=== PATIENT | male | born 1975 | race Two or more races ===

== ENCOUNTER 2018-12-09 20:45 | Inpatient (IN) | payer OTHER ==
[2018-12-09 23:59] VITALS: BMI 19.5
--- NOTE | 2018-12-10 01:56 | PN ---
BHS COWS - Scale Resting Pulse: 1= [place] 81-100 Sweatin= Chills/Flushing Restless Observation: 1= Difficult to Sit Still Pupil Size: 0= Normal to Room Light Bone or Joint Aches: 4=Acute Joint/Muscle Pain Runny Nose/ Eye Tearin= Nasal Congestion GI Upset > 30mins: 1= Stomach Cramp Tremor Observation of Outstretched Hands: 1= Tremor [place], Not Seen Yawning Observation: 1= 1-2x During Session Anxiety or Irritability: 2=Irritable/Anxious Goose Flesh Skin: 3=Piloerection COWS Score: 16 BHS Progress Note (SOAP) Subjective: here for detox. this is client first admission. referred by his retirement for heroin dependence. client reports sniffing 5 bags daily since age 12. with reported clean time inbetween. last use 1 day. now with withdrawal sx's. previous ivdu. denies sob, c.p. si/hi/avh. he also uses cocaine pmhx- denies psych- ptsd, anxiety, bipolar meds- trazodone, gabapentin, risperdal Objective: 12/10/18 01:54 Vital Signs Temperature 96.2 F L 12/10/18 00:34 Pulse Rate 82 12/10/18 00:34 Respiratory Rate 18 12/10/18 00:34 Blood Pressure 99/56 L 12/10/18 00:34 O2 Sat by Pulse Oximetry (%) jacky 0 utox randy, opi, oxy a/o x3 irritable ncat perrla, eomi cv rrr lungs ctab ABD- SOFT, NT, INCREASE BS X4 skin- FLUSHED INTACT EXTREMITIES- + TREMORS, 12/10/18 02:09 12/10/18 08:42 Assessment: 12/10/18 01:56 f11.23 f14.20 Plan: admit to detox mtd taper
[2018-12-10] MEDS ORDERED: METHOCARBAMOL 500 MG TABLET PO PRN (01:57)
[2018-12-10] MEDS ORDERED: NICOTINE POLACRILEX 2 MG GUM BUC PRN (01:57)
[2018-12-10] MEDS ORDERED: cloNIDine HCL 0.1 MG TABLET PO PRN (01:57)
[2018-12-10] MEDS ORDERED: MAGNESIUM CITRATE 300 ML BOTTLE PO PRN (01:57)
[2018-12-10] MEDS ORDERED: ACETAMINOPHEN 325 MG TABLET (FP) PO PRN ×2 (01:57)
[2018-12-10] MEDS ORDERED: IBUPROFEN 400 MG TABLET (FP) PO PRN (01:57)
[2018-12-10] MEDS ORDERED: DICYCLOMINE HCL 10 MG CAPSULE PO PRN (01:57)
[2018-12-10] MEDS ORDERED: METHADONE HCL 10 MG TABLET (FOR DETOX USE ONLY) PO ONE ×2 (01:57→10:00)
[2018-12-10] MEDS ORDERED: MAGNESIUM HYDROX 2400MG/30ML ORAL SUSPENSION 30 ML CUP PO PRN (01:57)
[2018-12-10] MEDS ORDERED: BISMUTH SUBSALICYLATE 524 MG/30 ML UD PO PRN (01:57)
[2018-12-10] MEDS ORDERED: guaiFENesin 200 MG/10 ML 10 ML UNIT-DOSE CUPS PO PRN (01:57)
[2018-12-10] MEDS ORDERED: MAG HYDROX/AL HYDROX/SIMETH 30 ML UNIT-DOSE CUP PO PRN (01:57)
[2018-12-10] MEDS ORDERED: MELATONIN 5 MG TABLETS PO PRN (01:57)
[2018-12-10] MEDS ORDERED: NALOXONE HCL 0.4 MG/ML VIAL IM PRN (01:57)
[2018-12-10] MEDS ORDERED: ONDANSETRON *ODT* 4 MG TABLET SL PRN ×2 (01:57→12:25)
[2018-12-10] MEDS ORDERED: MENTHOL/PHENOL 1 EACH UD MM PRN (01:57)
[2018-12-10] MEDS: PRENATAL VITAMINS W/ FOLIC ACID TABLET (FP) PO SCH (09:51)
--- NOTE | 2018-12-10 10:10 | HP ---
COWS - Scale Resting Pulse: 1= [place] 81-100 Sweatin= Chills/Flushing Restless Observation: 1= Difficult to Sit Still Pupil Size: 0= Normal to Room Light Bone or Joint Aches: 4=Acute Joint/Muscle Pain Runny Nose/ Eye Tearin= Nasal Congestion GI Upset > 30mins: 1= Stomach Cramp Tremor Observation: 1= Tremor [place], Not Seen Yawning Observation: 1= 1-2x During Session Anxiety or Irritability: 2=Irritable/Anxious Goose Flesh Skin: 3=Piloerection COWS Score: 16 CIWA Score - Admission Criteria OASAS Guidelines: Admission for Medically Managed Detox: Requires at least one of the followin. CIWA greater than 12 2. Seizures within the past 24 hours 3. Delirium tremens within the past 24 hours 4. Hallucinations within the past 24 hours 5. Acute intervention needed for co occurring medical disorder 6. Acute intervention needed for co occurring psychiatric disorder 7. Severe withdrawal that cannot be handled at a lower level of care (continued vomiting, continued diarrhea, abnormal vital signs) requiring intravenous medication and/or fluids 8. Admitting History and Physical - Admission Chief Complaint: i need help to stop using heroin,cocaine and k2 History of Present Illness: this 43 years old male with heroin,cocaine,k2 dependence, seeking detox, withdrawal symptom, fist time to this facility,stated on parole, denied seizure denied black out last detox [facility],05/28 history of bipolar disorder,ptsd multiple admissions in detox plan for rehab no significant period of sobriety smoke 4 cigarette/day History Source: Patient Limitations to Obtaining History: No Limitations - Past Medical History Psych: Yes: Anxiety, Bipolar, Other (ptsd) - Past Surgical History Past Surgical History: Yes: None - Smoking History Smoking history: Current every day smoker Have you smoked in the past 12 months: No Aproximately how many cigarettes per day: 4 - Alcohol/Substance Use Hx Alcohol Use: No History of Substance Use: reports: Cocaine, Heroin, Marijuana - Social History Usual Living Arrangement: Yes: Other ([facility]) Occupation: unemployed History of Recent Travel: No Other Social History: unemployed,living in the [facility],on parole Admission ROS BHS - HPI Chief Complaint: i am here to stop using heroin,alcohol and k2 Allergies/Adverse Reactions: Allergies Allergy/AdvReac Type Severity Reaction Status Date / Time No Known Allergies Allergy Verified 12/09/18 23:30 History of Present Illness: please see in PMH note - Ebola screening Have you traveled outside of the country in the last 21 days: No (N) Have you had contact with anyone from an Ebola affected area: No Do you have a fever: No - Review of Systems Constitutional: Chills, Loss of Appetite, Changes in sleep, Weakness, Unintentional Wgt. Loss EENT: reports: Tearing, Nose Congestion Respiratory: reports: No Symptoms reported Cardiac: reports: No Symptoms Reported GI: reports: Nausea, Poor Appetite, Vomiting : reports: No Symptoms Reported Musculoskeletal: reports: Back Pain, Joint Pain, Muscle Pain Integumentary: reports: Dryness Endocrine: reports: No Symptoms Reported Hematology: reports: No Symptoms Reported Psychiatric: reports: No Sypmtoms Reported, Judgement Intact, Mood/Affect Appropiate, Orientated x3 Other Systems: Reviewed and Negative Patient History - Patient Medical History Hx Anemia: No Hx Asthma: No Hx Chronic Obstructive Pulmonary Disease (COPD): No Hx Cancer: No Hx Cardiac Disorders: No Hx Hypertension: No Hx Hypercholesterolemia: No Hx Pacemaker: No HX Cerebrovascular Accident: No Hx Seizures: No Hx Diabetes: No Hx Gastrointestinal Disorders: No Hx Liver Disease: No Hx Genitourinary Disorders: No Hx Sexually Transmitted Disorders: No Hx Renal Disease (ESRD): No Hx Thyroid Disease: No Hx Human Immunodeficiency Virus (HIV): No (11/28 negative) Hx Hepatitis C: No Hx Depression: No Hx Suicide Attempt: No Hx Bipolar Disorder: Yes Hx Schizophrenia: Yes Other Medical History: no suicidal,no homicidal - Patient Surgical History Past Surgical History: No Hx Neurologic Surgery: No Hx Cataract Extraction: No Hx Cardiac Surgery: No Hx Lung Surgery: No Hx Breast Surgery: No Hx Breast Biopsy: No Hx Abdominal Surgery: No Hx Appendectomy: No Hx Cholecystectomy: No Hx Genitourinary Surgery: No Hx Section: No Hx Orthopedic Surgery: No Anesthesia Reaction: No - PPD History Previous Implant?: No (refused , stated 'i did it 2 weeks ago") Documented Results: Negative w/o proof PPD to be Administered?: No - Reproductive History Patient : No - Smoking Cessation Smoking history: Current every day smoker Have you smoked in the past 12 months: Yes Aproximately how many cigarettes per day: 0 Hx Chewing Tobacco Use: No Initiated information on smoking cessation: Yes 'Breaking Loose' booklet given: 12/10/18 - Substance & Tx. History Hx Alcohol Use: No Hx Substance Use: Yes Substance Use Type: Cocaine, Heroin Hx Substance Use Treatment: Yes ([facility] 05/28) - Substances abused Heroin Other (specify): SNIFF Frequency: Daily Amount used: 6 BAGS Age of first use: 12 Date of last use: 12/09/18 Cocaine Substance route: Smoking Frequency: Daily Amount used: 2-3 BAGS Age of first use: 13 Date of last use: 12/09/18 Admission Physical Exam [facility] - Vital Signs Vital Signs: Vital Signs - 24 hr 12/09/18 12/10/18 12/10/18 23:32 00:34 02:31 Temperature 96.2 F L 96.2 F L 97.7 F Pulse Rate 82 82 76 Respiratory 18 18 18 Rate Blood Pressure 99/56 L 99/56 L 108/63 12/10/18 12/10/18 06:00 09:42 Temperature 98.1 F 97.7 F Pulse Rate 68 75 Respiratory 18 18 Rate Blood Pressure 129/69 106/50 L - Physical General Appearance: Yes: Moderate Distress, Tremorous, Irritable, Sweating, Anxious HEENTM: Yes: Normal ENT Inspection, EMELY, Pharynx Normal Respiratory: Yes: Lungs Clear, Normal Breath Sounds, No Respiratory Distress Neck: Yes: Within Normal Limits, Supple, Trachea in good position Breast: Yes: Within Normal Limits Cardiology: Yes: Within Normal Limits, Regular Rhythm, Regular Rate, S1, S2 Abdominal: Yes: Within Normal Limits, Normal Bowel Sounds, Non Tender, Flat, Soft Genitourinary: Yes: Within Normal Limits Back: Yes: Muscle Spasm Musculoskeletal: Yes: Back pain, Muscle Pain Extremities: Yes: Within Normal Limits, Normal Range of Motion, Tremors Neurological: Yes: sample processor II-XII NML intact, Alert, Motor Strength 5/5 Integumentary: Yes: Dry Lymphatic: Yes: Within Normal Limits - Diagnostic (1) Opioid dependence with withdrawal Current Visit: Yes Status: Acute (2) Cocaine dependence Current Visit: Yes Status: Acute (3) Bipolar disorder Current Visit: Yes Status: Acute (4) PTSD (post-traumatic stress disorder) Current Visit: Yes Status: Acute (5) Weight loss Current Visit: Yes Status: Acute Cleared for Admission [facility] - Detox or Rehab [facility] Level of Care: Medically Managed Detox Regimen/Protocol: Methadone Urine Drug Screen - Test Device Lot number: [id number] Expiration date: 07/10/20 - Control Is test valid?: Yes - Results Drug screen NEGATIVE: No Urine drug screen results: KRISTEN-Cocaine, MOP-Opiates, OXY-Oxycodone Inpatient Rehab Admission - Rehab Decision to Admit Inpatient rehab admission?: No
--- NOTE | 2018-12-10 10:14 | EKG ---
Test Reason : Blood Pressure : / mmHG Vent. Rate : 070 BPM Atrial Rate : 070 BPM P-R Int : 184 ms QRS Dur : 092 ms QT Int : 414 ms P-R-T Axes : 038 074 035 degrees QTc Int : 447 ms NORMAL SINUS RHYTHM NORMAL ECG NO PREVIOUS ECGS AVAILABLE Confirmed by Alen Ayoub MD ([id number]) on 12/10/2018 10:13:56 AM Referred By: Sonny Miranda Confirmed By:Alen Ayoub MD
[2018-12-10 11:57] LABS: HEMATOCRIT 39.7 % (35.4-49); HEMOGLOBIN 13.2 GM/dL (11.7-16.9); MCH 29.3 pg (25.7-33.7); MCHC 33.2 g/dl (32.0-35.9); MEAN CELL VOLUME 88.2 fl (80-96); MEAN PLT VOLUME 8.7 fl (7.5-11.1); PLATELET COUNT 267 K/MM3 (134-434); WHITE BLOOD COUNT 5.3 K/mm3 (4.0-10.0)
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
[2018-12-10] MEDS: GABAPENTIN 300 MG CAPSULE (FP) PO SCH ×2 (12:45→22:28)
[2018-12-10] MEDS: risperiDONE 2 MG TABLET PO SCH (12:46)
[2018-12-10 12:57] LABS: ALBUMIN 3.4 g/dl (3.4-5.0); BILIRUBIN,TOTAL 0.3 mg/dL (0.2-1); BLOOD UREA NITROGEN 11.9 mg/dL (7-18); CALCIUM 8.6 mg/dL (8.5-10.1); CREATININE 0.7 mg/dL (0.55-1.3); POTASSIUM 4.2 mmol/L (3.5-5.1)
[2018-12-10] MEDS ORDERED: traZODone HCL 100 MG TABLET (FP) ONE (19:42)
[2018-12-10] MEDS ORDERED: GABAPENTIN 100 MG CAPSULE (FP) ONE (19:42)
[2018-12-10] MEDS: THIAMINE HCL 100 MG TABLET (FP) PO SCH (22:26)
[2018-12-10] MEDS: traZODone HCL 100 MG TABLET (FP) PO SCH (22:27)
[2018-12-10] MEDS ORDERED: clonazePAM 0.5 MG TABLET PO ONE (22:49)
--- NOTE | 2018-12-10 22:49 | PN ---
BHS Progress Note Note: INFORMED BY RN CLIENT IS COMPLAINING OR RESTLESSNESS, APPEARS VERY ANXIOUS. ASKING FOR SOMETHING TO HELP HIM RELAX REFUSING VISTARIL IT DOES NOT WORK. KLONOPIN 0.5 MG X 1 DOSE GIVEN. CONT TO MONITOR CLOSELY
[2018-12-10] MEDS ORDERED: clonazePAM 0.5 MG TABLET ONE (22:59)
[2018-12-10] MEDS: hydrOXYzine PAMOATE 25 MG CAPSULE (FP) PO PRN (23:00)
[2018-12-11] MEDS ORDERED: METHADONE HCL 10 MG TABLET (FOR DETOX USE ONLY) ONE (08:45)
[2018-12-11] MEDS ORDERED: METHADONE HCL 5 MG TABLET (FOR DETOX USE ONLY) ONE (08:46)
[2018-12-11] MEDS: risperiDONE 2 MG TABLET PO SCH (09:16)
[2018-12-11] MEDS: GABAPENTIN 300 MG CAPSULE (FP) PO SCH ×2 (09:16→21:42)
[2018-12-11] MEDS: PRENATAL VITAMINS W/ FOLIC ACID TABLET (FP) PO SCH (09:16)
[2018-12-11] MEDS ORDERED: METHADONE (DETOX) 20 MG, METHADONE (DETOX) 5 MG PO ONE (10:00)
--- NOTE | 2018-12-11 11:59 | PN ---
S COWS - Scale Resting Pulse: 0= [place] 80 or Below Sweatin= No chills or Flushing Restless Observation: 1= Difficult to Sit Still Pupil Size: 1= Pupils >than Normal Bone or Joint Aches: 1= Mild Discomfort Runny Nose/ Eye Tearin= Runny Nose/Eyes GI Upset > 30mins: 2= Nausea/Diarrhea Tremor Observation of Outstretched Hands: 1= Tremor [place], Not Seen Yawning Observation: 1= 1-2x During Session Anxiety or Irritability: 2=Irritable/Anxious Goose Flesh Skin: 0=Smooth Skin COWS Score: 11 [facility] Progress Note (SOAP) Subjective: alert,irritable,anxious,interrupted sleep,tremor Objective: 12/11/18 11:58 Vital Signs Temperature 97.3 F L 12/11/18 09:19 Pulse Rate 67 12/11/18 09:19 Respiratory Rate 18 12/11/18 09:19 Blood Pressure 113/62 12/11/18 09:19 O2 Sat by Pulse Oximetry (%) Laboratory Last Values WBC 5.3 K/mm3 (4.0-10.0) 12/10/18 08:45 RBC 4.50 M/mm3 (4.00-5.60) 12/10/18 08:45 Hgb 13.2 GM/dL (11.7-16.9) 12/10/18 08:45 Hct 39.7 % (35.4-49) 12/10/18 08:45 MCV 88.2 fl (80-96) 12/10/18 08:45 MCH 29.3 pg (25.7-33.7) 12/10/18 08:45 MCHC 33.2 g/dl (32.0-35.9) 12/10/18 08:45 RDW 15.0 % (11.9-15.9) 12/10/18 08:45 Plt Count 267 K/MM3 (134-434) 12/10/18 08:45 MPV 8.7 fl (7.5-11.1) 12/10/18 08:45 Sodium 140 mmol/L (136-145) 12/10/18 08:45 Potassium 4.2 mmol/L (3.5-5.1) 12/10/18 08:45 Chloride 104 mmol/L (98-107) 12/10/18 08:45 Carbon Dioxide 28 mmol/L (21-32) 12/10/18 08:45 Anion Gap 8 MMOL/L (8-16) 12/10/18 08:45 BUN 11.9 mg/dL (7-18) 12/10/18 08:45 Creatinine 0.7 mg/dL (0.55-1.3) 12/10/18 08:45 Est GFR (CKD-EPI)AfAm 132.09 12/10/18 08:45 Est GFR (CKD-EPI)NonAf 113.97 12/10/18 08:45 Random Glucose 104 mg/dL (74-106) 12/10/18 08:45 Calcium 8.6 mg/dL (8.5-10.1) 12/10/18 08:45 Total Bilirubin 0.3 mg/dL (0.2-1) 12/10/18 08:45 AST 61 U/L (15-37) H 12/10/18 08:45 ALT 174 U/L (13-61) H 12/10/18 08:45 Alkaline Phosphatase 72 U/L (45-117) 12/10/18 08:45 Total Protein 7.0 g/dl (6.4-8.2) 12/10/18 08:45 Albumin 3.4 g/dl (3.4-5.0) 12/10/18 08:45 RPR Titer Nonreactive (NONREACTIVE) 12/10/18 08:45 Assessment: 12/11/18 11:58 withdrawal symptom hiv test pending Plan: continue detox methadone regimen,repeat ast,alt,inr in am
[2018-12-11] MEDS: hydrOXYzine PAMOATE 25 MG CAPSULE (FP) PO PRN (13:40)
[2018-12-11] MEDS: THIAMINE HCL 100 MG TABLET (FP) PO SCH (21:42)
[2018-12-11] MEDS: traZODone HCL 100 MG TABLET (FP) PO SCH (21:42)
[2018-12-12] MEDS: risperiDONE 2 MG TABLET PO SCH (09:52)
[2018-12-12] MEDS: GABAPENTIN 300 MG CAPSULE (FP) PO SCH ×2 (09:52→21:22)
[2018-12-12] MEDS: PRENATAL VITAMINS W/ FOLIC ACID TABLET (FP) PO SCH (09:52)
[2018-12-12] MEDS: hydrOXYzine PAMOATE 25 MG CAPSULE (FP) PO PRN ×2 (09:54→16:31)
[2018-12-12] MEDS ORDERED: METHADONE HCL 10 MG TABLET (FOR DETOX USE ONLY) PO ONE (10:00)
[2018-12-12] MEDS ORDERED: ONDANSETRON *ODT* 4 MG TABLET SL PRN (14:16)
--- NOTE | 2018-12-12 14:25 | PN ---
BHS COWS - Scale Resting Pulse: 0= [place] 80 or Below Sweatin= Chills/Flushing Restless Observation: 1= Difficult to Sit Still Pupil Size: 0= Normal to Room Light Bone or Joint Aches: 1= Mild Discomfort Runny Nose/ Eye Tearin= Runny Nose/Eyes GI Upset > 30mins: 2= Nausea/Diarrhea Tremor Observation of Outstretched Hands: 1= Tremor [place], Not Seen Yawning Observation: 1= 1-2x During Session Anxiety or Irritability: 2=Irritable/Anxious Goose Flesh Skin: 0=Smooth Skin COWS Score: 11 S Progress Note (SOAP) Subjective: c/o of nausea, anxious, interrupted sleep, chills, sweats Objective: 12/12/18 14:20 Vital Signs Temperature 96.8 F L 12/12/18 09:43 Pulse Rate 77 12/12/18 09:43 Respiratory Rate 16 12/12/18 09:43 Blood Pressure 116/55 L 12/12/18 09:43 O2 Sat by Pulse Oximetry (%) Laboratory Last Values WBC 5.3 K/mm3 (4.0-10.0) 12/10/18 08:45 RBC 4.50 M/mm3 (4.00-5.60) 12/10/18 08:45 Hgb 13.2 GM/dL (11.7-16.9) 12/10/18 08:45 Hct 39.7 % (35.4-49) 12/10/18 08:45 MCV 88.2 fl (80-96) 12/10/18 08:45 MCH 29.3 pg (25.7-33.7) 12/10/18 08:45 MCHC 33.2 g/dl (32.0-35.9) 12/10/18 08:45 RDW 15.0 % (11.9-15.9) 12/10/18 08:45 Plt Count 267 K/MM3 (134-434) 12/10/18 08:45 MPV 8.7 fl (7.5-11.1) 12/10/18 08:45 Sodium 140 mmol/L (136-145) 12/10/18 08:45 Potassium 4.2 mmol/L (3.5-5.1) 12/10/18 08:45 Chloride 104 mmol/L (98-107) 12/10/18 08:45 Carbon Dioxide 28 mmol/L (21-32) 12/10/18 08:45 Anion Gap 8 MMOL/L (8-16) 12/10/18 08:45 BUN 11.9 mg/dL (7-18) 12/10/18 08:45 Creatinine 0.7 mg/dL (0.55-1.3) 12/10/18 08:45 Est GFR (CKD-EPI)AfAm 132.09 12/10/18 08:45 Est GFR (CKD-EPI)NonAf 113.97 12/10/18 08:45 Random Glucose 104 mg/dL (74-106) 12/10/18 08:45 Calcium 8.6 mg/dL (8.5-10.1) 12/10/18 08:45 Total Bilirubin 0.3 mg/dL (0.2-1) 12/10/18 08:45 AST 61 U/L (15-37) H 12/10/18 08:45 ALT 174 U/L (13-61) H 12/10/18 08:45 Alkaline Phosphatase 72 U/L (45-117) 12/10/18 08:45 Total Protein 7.0 g/dl (6.4-8.2) 12/10/18 08:45 Albumin 3.4 g/dl (3.4-5.0) 12/10/18 08:45 RPR Titer Nonreactive (NONREACTIVE) 12/10/18 08:45 HIV 1&2 Ag/Ab, 4th Gen Non reactive (Non Reactive) 12/11/18 08:00 elevated LFTS, reports hx of HCV and treated in the past, repeat CMP d/c acetaminophen 12/12/18 14:24 Assessment: 12/12/18 14:23 Aox3 no acute distress no adventitious breath sounds full ROM no gait abnormality withdrawal sx Plan: increase PO fluids zofran prn continue detox continue to monitor
[2018-12-12] MEDS: P-EPHED 60MG/TRIPROLIDI 2.5MG TABLET PO PRN (14:47)
[2018-12-12] MEDS: THIAMINE HCL 100 MG TABLET (FP) PO SCH (21:22)
[2018-12-12] MEDS: traZODone HCL 100 MG TABLET (FP) PO SCH (21:22)
[2018-12-13] MEDS ORDERED: METHADONE HCL 5 MG TABLET (FOR DETOX USE ONLY) ONE (08:59)
[2018-12-13] MEDS ORDERED: METHADONE HCL 10 MG TABLET (FOR DETOX USE ONLY) ONE (08:59)
[2018-12-13] MEDS: risperiDONE 2 MG TABLET PO SCH (09:19)
[2018-12-13] MEDS: PRENATAL VITAMINS W/ FOLIC ACID TABLET (FP) PO SCH (09:19)
[2018-12-13] MEDS: GABAPENTIN 300 MG CAPSULE (FP) PO SCH ×2 (09:19→21:58)
[2018-12-13] MEDS ORDERED: METHADONE (DETOX) 10 MG, METHADONE (DETOX) 5 MG PO ONE (10:00)
[2018-12-13] MEDS: hydrOXYzine PAMOATE 25 MG CAPSULE (FP) PO PRN (10:43)
[2018-12-13] MEDS: P-EPHED 60MG/TRIPROLIDI 2.5MG TABLET PO PRN (10:43)
[2018-12-13] MEDS ORDERED: MELATONIN 5 MG TABLETS PO PRN (12:03)
--- NOTE | 2018-12-13 12:17 | PN ---
BHS COWS - Scale Resting Pulse: 0= [place] 80 or Below Sweatin= Chills/Flushing Restless Observation: 1= Difficult to Sit Still Pupil Size: 0= Normal to Room Light Bone or Joint Aches: 1= Mild Discomfort Runny Nose/ Eye Tearin= Nasal Congestion GI Upset > 30mins: 0= None Tremor Observation of Outstretched Hands: 1= Tremor [place], Not Seen Yawning Observation: 0= None Anxiety or Irritability: 2=Irritable/Anxious Goose Flesh Skin: 0=Smooth Skin COWS Score: 7 [facility] Progress Note (SOAP) Subjective: sweats agitation irritable insomnia Objective: 12/13/18 12:16 Vital Signs Temperature 98.1 F 12/13/18 10:17 Pulse Rate 77 12/13/18 10:17 Respiratory Rate 16 12/13/18 10:17 Blood Pressure 105/55 L 12/13/18 10:17 O2 Sat by Pulse Oximetry (%) Laboratory Tests 12/10/18 12/10/18 12/10/18 08:45 08:45 08:45 WBC 5.3 RBC 4.50 Hgb 13.2 Hct 39.7 MCV 88.2 MCH 29.3 MCHC 33.2 RDW 15.0 Plt Count 267 MPV 8.7 Sodium 140 Potassium 4.2 Chloride 104 Carbon Dioxide 28 Anion Gap 8 BUN 11.9 Creatinine 0.7 Est GFR (CKD-EPI)AfAm 132.09 Est GFR (CKD-EPI)NonAf 113.97 Random Glucose 104 Calcium 8.6 Total Bilirubin 0.3 AST 61 H ALT 174 H Alkaline Phosphatase 72 Total Protein 7.0 Albumin 3.4 RPR Titer Nonreactive HIV 1&2 Ag/Ab, 4th Gen 12/11/18 08:00 WBC RBC Hgb Hct MCV MCH MCHC RDW Plt Count MPV Sodium Potassium Chloride Carbon Dioxide Anion Gap BUN Creatinine Est GFR (CKD-EPI)AfAm Est GFR (CKD-EPI)NonAf Random Glucose Calcium Total Bilirubin AST ALT Alkaline Phosphatase Total Protein Albumin RPR Titer HIV 1&2 Ag/Ab, 4th Gen Non reactive labs noted aaox3 ambulating no acute distress Assessment: 12/13/18 12:16 withdrawals sx Plan: continue detox valium 10mg q4hrs x 3 days melatonin 10mg qhs prn
[2018-12-13] MEDS: diazePAM 5 MG TABLET PO PRN ×2 (13:48→21:58)
[2018-12-13] MEDS: THIAMINE HCL 100 MG TABLET (FP) PO SCH (21:58)
[2018-12-13] MEDS: traZODone HCL 100 MG TABLET (FP) PO SCH (21:58)
[2018-12-14] MEDS ORDERED: METHADONE HCL 10 MG TABLET (FOR DETOX USE ONLY) PO ONE (10:00)
[2018-12-14] MEDS: GABAPENTIN 300 MG CAPSULE (FP) PO SCH ×2 (11:12→22:51)
[2018-12-14] MEDS: risperiDONE 2 MG TABLET PO SCH (11:12)
[2018-12-14] MEDS: PRENATAL VITAMINS W/ FOLIC ACID TABLET (FP) PO SCH (11:12)
[2018-12-14] MEDS: diazePAM 5 MG TABLET PO PRN (11:15)
--- NOTE | 2018-12-14 13:24 | PN ---
BHS COWS - Scale Resting Pulse: 0= [place] 80 or Below Sweatin= Chills/Flushing Restless Observation: 1= Difficult to Sit Still Pupil Size: 0= Normal to Room Light Bone or Joint Aches: 0= None Runny Nose/ Eye Tearin= None GI Upset > 30mins: 0= None Tremor Observation of Outstretched Hands: 0= None Yawning Observation: 1= 1-2x During Session Anxiety or Irritability: 1=Feels Anxious/Irritable Goose Flesh Skin: 0=Smooth Skin COWS Score: 4 [facility] Progress Note (SOAP) Subjective: c/o mild anxiety, sweats, and irritability. Objective: 12/14/18 13:22 Vital Signs 12/14/18 06:00 Temperature 97.9 F Pulse Rate 56 L Respiratory 18 Rate Blood Pressure 112/60 Lab Results WBC 5.3 K/mm3 (4.0-10.0) 12/10/18 08:45 RBC 4.50 M/mm3 (4.00-5.60) 12/10/18 08:45 Hgb 13.2 GM/dL (11.7-16.9) 12/10/18 08:45 Hct 39.7 % (35.4-49) 12/10/18 08:45 MCV 88.2 fl (80-96) 12/10/18 08:45 MCHC 33.2 g/dl (32.0-35.9) 12/10/18 08:45 RDW 15.0 % (11.9-15.9) 12/10/18 08:45 Plt Count 267 K/MM3 (134-434) 12/10/18 08:45 Sodium 140 mmol/L (136-145) 12/10/18 08:45 Potassium 4.2 mmol/L (3.5-5.1) 12/10/18 08:45 Chloride 104 mmol/L (98-107) 12/10/18 08:45 Carbon Dioxide 28 mmol/L (21-32) 12/10/18 08:45 Anion Gap 8 MMOL/L (8-16) 12/10/18 08:45 BUN 11.9 mg/dL (7-18) 12/10/18 08:45 Creatinine 0.7 mg/dL (0.55-1.3) 12/10/18 08:45 Random Glucose 104 mg/dL (74-106) 12/10/18 08:45 Calcium 8.6 mg/dL (8.5-10.1) 12/10/18 08:45 Labs noted. Assessment: 12/14/18 13:22 AOX3, in no acute respiratory distress. Full ROM, ambulating in the unit. mild withdrawal symptoms. For discharge tomorrow. 12/14/18 13:23 Plan: continue detox. discontinue valium prn.
[2018-12-14] MEDS: THIAMINE HCL 100 MG TABLET (FP) PO SCH (22:51)
[2018-12-14] MEDS: traZODone HCL 100 MG TABLET (FP) PO SCH (22:51)
[2018-12-14] MEDS: hydrOXYzine PAMOATE 25 MG CAPSULE (FP) PO PRN (22:57)
[2018-12-15] MEDS ORDERED: METHADONE HCL 5 MG TABLET (FOR DETOX USE ONLY) PO ONE (06:00)
[2018-12-15 09:23] VITALS: BP 107/50; PULSE 69; TEMP 97.1
--- NOTE | 2018-12-15 14:57 | PN ---
S Progress Note (SOAP) Subjective: no complaint offered Objective: 12/15/18 14:56 A & O x 3 not in acute distress ] Vital Signs Temperature 97.1 F L 12/15/18 09:21 Pulse Rate 69 12/15/18 09:21 Respiratory Rate 18 12/15/18 09:21 Blood Pressure 107/50 L 12/15/18 09:21 O2 Sat by Pulse Oximetry (%) Assessment: 12/15/18 14:57 completed detox Plan: for d/c
--- NOTE | 2018-12-15 15:03 | DS ---
[facility] Detox Discharge Summary Admission Date: 12/10/18 Discharge Date: 12/15/18 - History Additional Comments: patient for d/c verbalized feeling great states he will continue care at his detention by attending meetings - Physical Exam Results Vital Signs: Vital Signs Temperature 97.1 F L 12/15/18 09:21 Pulse Rate 69 12/15/18 09:21 Respiratory Rate 18 12/15/18 09:21 Blood Pressure 107/50 L 12/15/18 09:21 O2 Sat by Pulse Oximetry (%) - Treatment Hospital Course: Detox Protocol Followed, Detoxed Safely, Responded well, Discharged Condition Good - Medication Discharge Medications: Ambulatory Orders Gabapentin 300 mg PO BID 12/09/18 Risperidone [Risperdal] 2 mg PO DAILY 12/09/18 traZODone HCL [Trazodone HCl] 100 mg PO HS 12/09/18 - Diagnosis (1) Cannabis dependence Status: Acute (2) Cocaine dependence Status: Acute (3) Opioid dependence with withdrawal Status: Acute (4) Substance-induced anxiety disorder Status: Acute (5) Substance-induced sleep disorder Status: Acute (6) Weight loss Status: Acute (7) Bipolar disorder Status: Chronic (8) Nicotine dependence Status: Chronic (9) PTSD (post-traumatic stress disorder) Status: Chronic - AMA Did Patient Leave Against Medical Advice: No
== END 2018-12-15 09:25 | disposition home or self-care (01) | DRG 773 ==
LOC: YASAS 20:45 → Y6N 12-10 02:03
PROVIDERS: ADMIT Surgery; ATTEND Surgery
PROC: HZ2ZZZZ Detoxification Services for Substance Abuse Treatment (ICD-10-PCS; principal; 2018-12-10)
DX: F11.23 Opioid dependence with withdrawal (principal); F14.20 Cocaine dependence, uncomplicated; F12.20 Cannabis dependence, uncomplicated; F17.210 Nicotine dependence, cigarettes, uncomplicated; F19.280 Other psychoactive substance dependence with psychoactive substance-induced anxiety disorder; F19.282 Other psychoactive substance dependence with psychoactive substance-induced sleep disorder; F31.9 Bipolar disorder, unspecified; F43.10 Post-traumatic stress disorder, unspecified; F20.9 Schizophrenia, unspecified; R94.5 Abnormal results of liver function studies; R63.4 Abnormal weight loss; Z68.1 Body mass index [BMI] 19.9 or less, adult; Z59.0 Homelessness
CPT/HCPCS: 36415; 80053; 85027; 86593; 87389; 93005; 93010; J0735

== ENCOUNTER 2020-08-24 14:04 | Inpatient (IN) | payer OTHER ==
[2020-08-24 15:27] VITALS: BMI 25.4
[2020-08-24] MEDS ORDERED: MAGNESIUM CITRATE 300 ML BOTTLE PO PRN (18:18)
[2020-08-24] MEDS ORDERED: P-EPHED 60MG/TRIPROLIDI 2.5MG TABLET PO PRN (18:18)
[2020-08-24] MEDS ORDERED: IBUPROFEN 400 MG TABLET (FP) PO PRN (18:18)
[2020-08-24] MEDS ORDERED: MAGNESIUM HYDROX 2400MG/30ML ORAL SUSPENSION 30 ML CUP PO PRN (18:18)
[2020-08-24] MEDS ORDERED: ACETAMINOPHEN 325 MG TABLET (FP) PO PRN (18:18)
[2020-08-24] MEDS ORDERED: LOPERAMIDE HCL 2 MG CAPSULE PO PRN (18:18)
[2020-08-24] MEDS ORDERED: guaiFENesin 200 MG/10 ML 10 ML UNIT-DOSE CUPS PO PRN (18:18)
[2020-08-24] MEDS ORDERED: MAG HYDROX/AL HYDROX/SIMETH 30 ML UNIT-DOSE CUP PO PRN (18:18)
[2020-08-24] MEDS ORDERED: TUBERCULIN PPD 5 TU/0.1ML VIAL ID ONE ×2 (19:02→22:03)
[2020-08-24] MEDS: NICOTINE 7 MG/24 HOURS TOPICAL PATCH TD SCH (21:24)
[2020-08-24] MEDS: THIAMINE HCL 100 MG TABLET (FP) PO SCH (21:25)
[2020-08-24] MEDS: hydrOXYzine PAMOATE 25 MG CAPSULE (FP) PO SCH (21:25)
[2020-08-24] MEDS: NICOTINE POLACRILEX 2 MG GUM BC PRN (21:27)
[2020-08-24] MEDS ORDERED: MELATONIN 5 MG TABLETS PO SCH (22:00)
[2020-08-25] MEDS: hydrOXYzine PAMOATE 25 MG CAPSULE (FP) PO SCH ×5 (07:55→21:35)
[2020-08-25 10:07] LABS: HEMATOCRIT 37.9 % (35.4-49); MCH 31.5 pg (25.7-33.7); MCHC 34.2 g/dl (32.0-35.9); MEAN PLT VOLUME 8.6 fl (7.5-11.1); PLATELET COUNT 149 10^3/uL (134-434); RBC 4.12 M/mm3 (4.00-5.60); RDW 14.3 % (11.9-15.9); WHITE BLOOD COUNT 3.9 K/mm3 (4.0-10.0)
[2020-08-25 10:12] LABS: CALCIUM 8.2 mg/dL (8.5-10.1)
[2020-08-25 10:13] LABS: ALBUMIN 2.8 g/dl (3.4-5.0); BLOOD UREA NITROGEN 3.4 mg/dL (7-18)
[2020-08-25 10:16] LABS: CREATININE 0.5 mg/dL (0.55-1.3)
[2020-08-25 10:18] LABS: BILIRUBIN,TOTAL 1.2 mg/dL (0.2-1); TOT PROT 6.3 g/dl (6.4-8.2)
[2020-08-25] MEDS ORDERED: METHADONE HCL 40 MG DISPERSABLE TABLET PO ONE (10:45)
[2020-08-25] MEDS: PRENATAL VITAMINS W/ FOLIC ACID TABLET (FP) PO SCH (10:47)
[2020-08-25] MEDS: NICOTINE 7 MG/24 HOURS TOPICAL PATCH TD SCH (10:47)
[2020-08-25] MEDS: NICOTINE POLACRILEX 2 MG GUM BC PRN (10:48)
[2020-08-25] MEDS: risperiDONE 1 MG TABLET PO SCH (21:35)
[2020-08-25] MEDS: THIAMINE HCL 100 MG TABLET (FP) PO SCH (21:35)
[2020-08-25] MEDS: GABAPENTIN 100 MG CAPSULE PO SCH (21:35)
[2020-08-25] MEDS: traZODone HCL 50 MG TABLET (FP) PO SCH (21:36)
[2020-08-26] MEDS ORDERED: METHADONE HCL 10 MG TABLET PO ONE (06:00)
[2020-08-26] MEDS ORDERED: METHADONE 80 MG, METHADONE 10 MG PO ONE (06:00)
[2020-08-26] MEDS ORDERED: METHADONE HCL 40 MG DISPERSABLE TABLET ONE (06:15)
[2020-08-26] MEDS ORDERED: METHADONE HCL 10 MG TABLET ONE (06:15)
[2020-08-26] MEDS: hydrOXYzine PAMOATE 25 MG CAPSULE (FP) PO SCH ×5 (07:02→21:27)
[2020-08-26] MEDS: PRENATAL VITAMINS W/ FOLIC ACID TABLET (FP) PO SCH (10:12)
[2020-08-26] MEDS: NICOTINE 7 MG/24 HOURS TOPICAL PATCH TD SCH (10:13)
[2020-08-26] MEDS: GABAPENTIN 100 MG CAPSULE PO SCH ×2 (10:13→21:26)
[2020-08-26] MEDS: risperiDONE 1 MG TABLET PO SCH (21:26)
[2020-08-26] MEDS: THIAMINE HCL 100 MG TABLET (FP) PO SCH (21:26)
[2020-08-26] MEDS: traZODone HCL 50 MG TABLET (FP) PO SCH (21:26)
[2020-08-27] MEDS ORDERED: METHADONE HCL 40 MG DISPERSABLE TABLET ONE (04:41)
[2020-08-27] MEDS ORDERED: METHADONE HCL 10 MG TABLET ONE (04:41)
[2020-08-27] MEDS ORDERED: METHADONE HCL 10 MG TABLET PO ONE (06:00)
[2020-08-27] MEDS ORDERED: METHADONE 80 MG, METHADONE 20 MG PO SCH (06:00)
[2020-08-27] MEDS: hydrOXYzine PAMOATE 25 MG CAPSULE (FP) PO SCH ×5 (06:52→21:04)
[2020-08-27] MEDS: NICOTINE 7 MG/24 HOURS TOPICAL PATCH TD SCH (09:59)
[2020-08-27] MEDS: PRENATAL VITAMINS W/ FOLIC ACID TABLET (FP) PO SCH (09:59)
[2020-08-27] MEDS: GABAPENTIN 100 MG CAPSULE PO SCH ×2 (09:59→21:04)
[2020-08-27] MEDS: NICOTINE POLACRILEX 2 MG GUM BC PRN (10:00)
[2020-08-27] MEDS: HYDROCORTISONE 1% TOPICAL CREAM 30 GM TUBE TP SCH ×2 (15:22→21:05)
[2020-08-27] MEDS: traZODone HCL 50 MG TABLET (FP) PO SCH (21:04)
[2020-08-27] MEDS: THIAMINE HCL 100 MG TABLET (FP) PO SCH (21:07)
[2020-08-27] MEDS: risperiDONE 2 MG TABLET PO SCH (21:49)
[2020-08-28] MEDS ORDERED: METHADONE HCL 10 MG TABLET ONE (05:07)
[2020-08-28] MEDS ORDERED: METHADONE HCL 40 MG DISPERSABLE TABLET ONE (05:07)
[2020-08-28] MEDS ORDERED: METHADONE HCL 10 MG TABLET PO SCH (06:00)
[2020-08-28] MEDS: METHADONE 80 MG, METHADONE 30 MG PO SCH (06:32)
[2020-08-28] MEDS: hydrOXYzine PAMOATE 25 MG CAPSULE (FP) PO SCH ×5 (06:32→21:45)
[2020-08-28] MEDS: GABAPENTIN 100 MG CAPSULE PO SCH ×2 (07:15→21:45)
[2020-08-28] MEDS ORDERED: PT OWN MED DRAWER 7, Y5N ONE (08:51)
[2020-08-28] MEDS: PRENATAL VITAMINS W/ FOLIC ACID TABLET (FP) PO SCH (09:38)
[2020-08-28] MEDS: HYDROCORTISONE 1% TOPICAL CREAM 30 GM TUBE TP SCH ×2 (09:39→21:45)
[2020-08-28] MEDS: NICOTINE 7 MG/24 HOURS TOPICAL PATCH TD SCH (09:40)
[2020-08-28] MEDS: NICOTINE POLACRILEX 2 MG GUM BC PRN (09:40)
[2020-08-28] MEDS: traZODone HCL 50 MG TABLET (FP) PO SCH (21:45)
[2020-08-28] MEDS: THIAMINE HCL 100 MG TABLET (FP) PO SCH (21:45)
[2020-08-28] MEDS: risperiDONE 2 MG TABLET PO SCH (21:46)
[2020-08-29] MEDS ORDERED: METHADONE HCL 10 MG TABLET ONE (03:21)
[2020-08-29] MEDS ORDERED: METHADONE HCL 40 MG DISPERSABLE TABLET ONE (03:22)
[2020-08-29] MEDS: METHADONE 80 MG, METHADONE 30 MG PO SCH (06:48)
[2020-08-29] MEDS: hydrOXYzine PAMOATE 25 MG CAPSULE (FP) PO SCH ×5 (06:48→21:27)
[2020-08-29] MEDS: PRENATAL VITAMINS W/ FOLIC ACID TABLET (FP) PO SCH (09:30)
[2020-08-29] MEDS: NICOTINE 7 MG/24 HOURS TOPICAL PATCH TD SCH (09:30)
[2020-08-29] MEDS: GABAPENTIN 100 MG CAPSULE PO SCH ×2 (09:31→21:27)
[2020-08-29] MEDS: HYDROCORTISONE 1% TOPICAL CREAM 30 GM TUBE TP SCH ×2 (09:32→21:28)
[2020-08-29 11:04] LABS: PH,URINE >= 9.0 (5.0-8.0); URINE APPEARANCE CLEAR; URINE BILIRUBIN NEGATIVE (NEGATIVE); URINE COLOR YELLOW; URINE GLUCOSE (UA) NEGATIVE (NEGATIVE); URINE KETONE NEGATIVE (NEGATIVE); URINE LEUK ESTERASE NEGATIVE (NEGATIVE); URINE NITRITE NEGATIVE (NEGATIVE); URINE PROTEIN NEGATIVE (NEGATIVE); URINE UROBILINOGEN 0.2 mg/dL (0.2-1.0)
[2020-08-29] MEDS ORDERED: PT OWN MED DRAWER 7, Y5N ONE (18:57)
[2020-08-29] MEDS: THIAMINE HCL 100 MG TABLET (FP) PO SCH (21:27)
[2020-08-29] MEDS: traZODone HCL 50 MG TABLET (FP) PO SCH (21:27)
[2020-08-29] MEDS: risperiDONE 2 MG TABLET PO SCH (21:27)
[2020-08-30] MEDS ORDERED: METHADONE HCL 10 MG TABLET ONE (03:43)
[2020-08-30] MEDS ORDERED: METHADONE HCL 40 MG DISPERSABLE TABLET ONE (03:44)
[2020-08-30] MEDS: METHADONE 80 MG, METHADONE 30 MG PO SCH (07:04)
[2020-08-30] MEDS: hydrOXYzine PAMOATE 25 MG CAPSULE (FP) PO SCH ×5 (07:04→21:30)
[2020-08-30] MEDS: GABAPENTIN 100 MG CAPSULE PO SCH (09:24)
[2020-08-30] MEDS: PRENATAL VITAMINS W/ FOLIC ACID TABLET (FP) PO SCH (09:24)
[2020-08-30] MEDS: HYDROCORTISONE 1% TOPICAL CREAM 30 GM TUBE TP SCH ×2 (09:24→22:16)
[2020-08-30] MEDS: NICOTINE 7 MG/24 HOURS TOPICAL PATCH TD SCH (09:25)
[2020-08-30] MEDS: THIAMINE HCL 100 MG TABLET (FP) PO SCH (21:31)
[2020-08-30] MEDS: risperiDONE 2 MG TABLET PO SCH (21:31)
[2020-08-30] MEDS: GABAPENTIN 300 MG CAPSULE PO SCH (21:31)
[2020-08-30] MEDS: traZODone HCL 100 MG TABLET (FP) PO SCH (21:34)
[2020-08-31] MEDS ORDERED: METHADONE HCL 10 MG TABLET ONE (05:23)
[2020-08-31] MEDS ORDERED: METHADONE HCL 40 MG DISPERSABLE TABLET ONE (05:23)
[2020-08-31] MEDS: hydrOXYzine PAMOATE 25 MG CAPSULE (FP) PO SCH ×2 (06:26→10:05)
[2020-08-31] MEDS: GABAPENTIN 300 MG CAPSULE PO SCH ×3 (06:26→22:11)
[2020-08-31] MEDS: METHADONE 80 MG, METHADONE 30 MG PO SCH (06:27)
[2020-08-31] MEDS: HYDROCORTISONE 1% TOPICAL CREAM 30 GM TUBE TP SCH ×2 (10:04→22:11)
[2020-08-31] MEDS: NICOTINE 7 MG/24 HOURS TOPICAL PATCH TD SCH (10:05)
[2020-08-31] MEDS: PRENATAL VITAMINS W/ FOLIC ACID TABLET (FP) PO SCH (10:05)
[2020-08-31] MEDS: risperiDONE 1 MG TABLET PO SCH (10:05)
[2020-08-31] MEDS ORDERED: PT OWN MED DRAWER 7, Y5N ONE (20:07)
[2020-08-31] MEDS: THIAMINE HCL 100 MG TABLET (FP) PO SCH (22:11)
[2020-08-31] MEDS: traZODone HCL 100 MG TABLET (FP) PO SCH (22:11)
[2020-08-31] MEDS: risperiDONE 2 MG TABLET PO SCH (22:12)
[2020-09-01] MEDS ORDERED: METHADONE HCL 40 MG DISPERSABLE TABLET ONE (04:15)
[2020-09-01] MEDS ORDERED: METHADONE HCL 10 MG TABLET ONE (04:15)
[2020-09-01] MEDS: GABAPENTIN 300 MG CAPSULE PO SCH ×2 (06:18→14:45)
[2020-09-01] MEDS: METHADONE 80 MG, METHADONE 30 MG PO SCH (06:19)
[2020-09-01] MEDS: HYDROCORTISONE 1% TOPICAL CREAM 30 GM TUBE TP SCH (09:39)
[2020-09-01] MEDS: hydrOXYzine PAMOATE 25 MG CAPSULE (FP) PO PRN ×2 (09:39→21:17)
[2020-09-01] MEDS: PRENATAL VITAMINS W/ FOLIC ACID TABLET (FP) PO SCH (09:39)
[2020-09-01] MEDS: NICOTINE 7 MG/24 HOURS TOPICAL PATCH TD SCH (09:39)
[2020-09-01] MEDS: risperiDONE 1 MG TABLET PO SCH (09:39)
[2020-09-01] MEDS ORDERED: PT OWN MED DRAWER 7, Y5N ONE (21:16)
[2020-09-01] MEDS: GABAPENTIN 100 MG CAPSULE PO SCH (21:16)
[2020-09-01] MEDS: THIAMINE HCL 100 MG TABLET (FP) PO SCH (21:16)
[2020-09-01] MEDS: risperiDONE 2 MG TABLET PO SCH (21:18)
[2020-09-02] MEDS ORDERED: METHADONE HCL 40 MG DISPERSABLE TABLET ONE (03:14)
[2020-09-02] MEDS ORDERED: METHADONE HCL 10 MG TABLET ONE (03:14)
[2020-09-02] MEDS: METHADONE 80 MG, METHADONE 30 MG PO SCH (06:34)
[2020-09-02] MEDS: GABAPENTIN 100 MG CAPSULE PO SCH ×3 (06:34→21:38)
[2020-09-02] MEDS: risperiDONE 1 MG TABLET PO SCH (09:40)
[2020-09-02] MEDS: NICOTINE 7 MG/24 HOURS TOPICAL PATCH TD SCH (09:40)
[2020-09-02] MEDS: PRENATAL VITAMINS W/ FOLIC ACID TABLET (FP) PO SCH (09:40)
[2020-09-02] MEDS: NICOTINE POLACRILEX 2 MG GUM BC PRN ×2 (09:42→21:40)
[2020-09-02] MEDS: CLOTRIMAZOLE 1% CREAM 15 GM TUBE TP SCH ×2 (14:50→21:41)
[2020-09-02] MEDS ORDERED: PT OWN MED DRAWER 7, Y5N ONE (18:59)
[2020-09-02] MEDS: SUVOREXANT 10 MG TABLET PO PRN (21:37)
[2020-09-02] MEDS: THIAMINE HCL 100 MG TABLET (FP) PO SCH (21:38)
[2020-09-02] MEDS: risperiDONE 2 MG TABLET PO SCH (21:38)
[2020-09-02] MEDS: hydrOXYzine PAMOATE 25 MG CAPSULE (FP) PO PRN (21:39)
[2020-09-03] MEDS ORDERED: METHADONE HCL 40 MG DISPERSABLE TABLET ONE (05:00)
[2020-09-03] MEDS ORDERED: METHADONE HCL 10 MG TABLET ONE (05:00)
[2020-09-03] MEDS: METHADONE 80 MG, METHADONE 30 MG PO SCH (06:40)
[2020-09-03] MEDS: GABAPENTIN 100 MG CAPSULE PO SCH ×3 (06:40→21:11)
[2020-09-03] MEDS: NICOTINE 7 MG/24 HOURS TOPICAL PATCH TD SCH (09:52)
[2020-09-03] MEDS: PRENATAL VITAMINS W/ FOLIC ACID TABLET (FP) PO SCH (09:52)
[2020-09-03] MEDS: CLOTRIMAZOLE 1% CREAM 15 GM TUBE TP SCH ×2 (09:53→21:11)
[2020-09-03] MEDS: risperiDONE 1 MG TABLET PO SCH (09:53)
[2020-09-03] MEDS: hydrOXYzine PAMOATE 25 MG CAPSULE (FP) PO PRN (09:54)
[2020-09-03] MEDS: NICOTINE POLACRILEX 2 MG GUM BC PRN (09:54)
[2020-09-03] MEDS ORDERED: PT OWN MED DRAWER 7, Y5N ONE (18:13)
[2020-09-03] MEDS: THIAMINE HCL 100 MG TABLET (FP) PO SCH (21:11)
[2020-09-03] MEDS: risperiDONE 2 MG TABLET PO SCH (21:11)
[2020-09-04] MEDS ORDERED: METHADONE HCL 40 MG DISPERSABLE TABLET ONE (04:04)
[2020-09-04] MEDS ORDERED: METHADONE HCL 10 MG TABLET ONE (04:04)
[2020-09-04] MEDS: GABAPENTIN 100 MG CAPSULE PO SCH ×3 (06:13→21:16)
[2020-09-04] MEDS: METHADONE 80 MG, METHADONE 30 MG PO SCH (06:13)
[2020-09-04] MEDS: PRENATAL VITAMINS W/ FOLIC ACID TABLET (FP) PO SCH (09:52)
[2020-09-04] MEDS: NICOTINE 7 MG/24 HOURS TOPICAL PATCH TD SCH (09:52)
[2020-09-04] MEDS: CLOTRIMAZOLE 1% CREAM 15 GM TUBE TP SCH ×2 (09:52→21:16)
[2020-09-04] MEDS: risperiDONE 1 MG TABLET PO SCH (09:52)
[2020-09-04] MEDS ORDERED: PT OWN MED DRAWER 7, Y5N ONE (19:36)
[2020-09-04] MEDS: SUVOREXANT 10 MG TABLET PO PRN (21:16)
[2020-09-04] MEDS: risperiDONE 2 MG TABLET PO SCH (21:16)
[2020-09-04] MEDS: THIAMINE HCL 100 MG TABLET (FP) PO SCH (21:16)
[2020-09-04] MEDS: hydrOXYzine PAMOATE 25 MG CAPSULE (FP) PO PRN (21:16)
[2020-09-05] MEDS ORDERED: METHADONE HCL 10 MG TABLET ONE (02:07)
[2020-09-05] MEDS ORDERED: METHADONE HCL 40 MG DISPERSABLE TABLET ONE (02:07)
[2020-09-05] MEDS: GABAPENTIN 100 MG CAPSULE PO SCH ×3 (06:12→21:23)
[2020-09-05] MEDS: METHADONE 80 MG, METHADONE 30 MG PO SCH (06:13)
[2020-09-05] MEDS: PRENATAL VITAMINS W/ FOLIC ACID TABLET (FP) PO SCH (09:58)
[2020-09-05] MEDS: hydrOXYzine PAMOATE 25 MG CAPSULE (FP) PO PRN ×2 (09:58→19:16)
[2020-09-05] MEDS: risperiDONE 1 MG TABLET PO SCH (09:58)
[2020-09-05] MEDS: NICOTINE POLACRILEX 2 MG GUM BC PRN (09:58)
[2020-09-05] MEDS: NICOTINE 7 MG/24 HOURS TOPICAL PATCH TD SCH (09:58)
[2020-09-05] MEDS: BACITRACIN 0.9 GM PACKET TP SCH (09:59)
[2020-09-05] MEDS: CLOTRIMAZOLE 1% CREAM 15 GM TUBE TP SCH ×2 (09:59→21:23)
[2020-09-05] MEDS: SUVOREXANT 10 MG TABLET PO PRN (21:23)
[2020-09-05] MEDS: THIAMINE HCL 100 MG TABLET (FP) PO SCH (21:23)
[2020-09-05] MEDS: risperiDONE 2 MG TABLET PO SCH (21:23)
[2020-09-05] MEDS ORDERED: SUVOREXANT 10 MG TABLET PO PRN (22:00)
[2020-09-06] MEDS: hydrOXYzine PAMOATE 25 MG CAPSULE (FP) PO PRN (02:11)
[2020-09-06] MEDS ORDERED: METHADONE HCL 10 MG TABLET ONE (05:00)
[2020-09-06] MEDS ORDERED: METHADONE HCL 40 MG DISPERSABLE TABLET ONE (05:00)
[2020-09-06] MEDS: METHADONE 80 MG, METHADONE 30 MG PO SCH (06:46)
[2020-09-06] MEDS: GABAPENTIN 100 MG CAPSULE PO SCH ×3 (06:46→21:31)
[2020-09-06] MEDS: PRENATAL VITAMINS W/ FOLIC ACID TABLET (FP) PO SCH (09:33)
[2020-09-06] MEDS: BACITRACIN 0.9 GM PACKET TP SCH (09:33)
[2020-09-06] MEDS: risperiDONE 1 MG TABLET PO SCH (09:33)
[2020-09-06] MEDS: NICOTINE 7 MG/24 HOURS TOPICAL PATCH TD SCH (09:34)
[2020-09-06] MEDS: CLOTRIMAZOLE 1% CREAM 15 GM TUBE TP SCH ×2 (09:34→21:31)
[2020-09-06] MEDS: NICOTINE POLACRILEX 2 MG GUM BC PRN ×2 (15:44→21:36)
[2020-09-06] MEDS ORDERED: PT OWN MED DRAWER 7, Y5N ONE (19:27)
[2020-09-06] MEDS: THIAMINE HCL 100 MG TABLET (FP) PO SCH (21:31)
[2020-09-06] MEDS: risperiDONE 2 MG TABLET PO SCH (21:31)
[2020-09-07] MEDS ORDERED: METHADONE HCL 10 MG TABLET ONE (05:19)
[2020-09-07] MEDS ORDERED: METHADONE HCL 40 MG DISPERSABLE TABLET ONE (05:19)
[2020-09-07] MEDS: METHADONE 80 MG, METHADONE 30 MG PO SCH (05:55)
[2020-09-07] MEDS: GABAPENTIN 100 MG CAPSULE PO SCH (05:55)
[2020-09-07 07:11] VITALS: BP 129/75; PULSE 67; TEMP 97.6
[2020-09-07] MEDS: PRENATAL VITAMINS W/ FOLIC ACID TABLET (FP) PO SCH (09:12)
[2020-09-07] MEDS: NICOTINE 7 MG/24 HOURS TOPICAL PATCH TD SCH (09:12)
[2020-09-07] MEDS: risperiDONE 1 MG TABLET PO SCH (09:13)
[2020-09-07] MEDS: CLOTRIMAZOLE 1% CREAM 15 GM TUBE TP SCH (09:13)
[2020-09-07] MEDS: BACITRACIN 0.9 GM PACKET TP SCH (09:13)
== END 2020-09-07 09:40 | disposition home or self-care (01) | DRG 772 ==
LOC: YASAS 14:04 → Y5N 18:40
PROVIDERS: ADMIT Allergy & Immunology; ATTEND Allergy & Immunology
PROC: HZ42ZZZ Group Counseling for Substance Abuse Treatment, Cognitive-Behavioral (ICD-10-PCS; principal; 2020-08-24)
DX: F10.20 Alcohol dependence, uncomplicated (principal); F11.20 Opioid dependence, uncomplicated; F14.20 Cocaine dependence, uncomplicated; F12.20 Cannabis dependence, uncomplicated; F17.210 Nicotine dependence, cigarettes, uncomplicated; F31.9 Bipolar disorder, unspecified; F19.280 Other psychoactive substance dependence with psychoactive substance-induced anxiety disorder; F19.282 Other psychoactive substance dependence with psychoactive substance-induced sleep disorder; F43.10 Post-traumatic stress disorder, unspecified; B35.6 Tinea cruris; R32 Unspecified urinary incontinence; R63.4 Abnormal weight loss; Z68.25 Body mass index [BMI] 25.0-25.9, adult; Z91.5 Personal history of self-harm; Z56.0 Unemployment, unspecified; Z59.0 Homelessness
CPT/HCPCS: 36415; 80053; 81003; 85027; 86780; 93005; 93010; J2794

== ENCOUNTER 2020-11-25 16:38 | Inpatient (IN) | payer OTHER ==
[2020-11-25 21:27] VITALS: BMI 19.5
[2020-11-25] MEDS ORDERED: BISMUTH SUBSALICYLATE 524 MG/30 ML PO PRN (23:26)
[2020-11-25] MEDS ORDERED: ACETAMINOPHEN 325 MG TABLET (FP) PO PRN ×2 (23:26)
[2020-11-25] MEDS ORDERED: MAGNESIUM CITRATE 300 ML BOTTLE PO PRN (23:26)
[2020-11-25] MEDS ORDERED: MAG HYDROX/AL HYDROX/SIMETH 30 ML UNIT-DOSE CUP PO PRN (23:26)
[2020-11-25] MEDS ORDERED: ONDANSETRON *ODT* 4 MG TABLET SL PRN (23:26)
[2020-11-25] MEDS ORDERED: MAGNESIUM HYDROX 2400MG/30ML ORAL SUSPENSION 30 ML CUP PO PRN (23:26)
[2020-11-25] MEDS ORDERED: MENTHOL/PHENOL 1 EACH UD MM PRN (23:26)
[2020-11-25] MEDS ORDERED: IBUPROFEN 400 MG TABLET (FP) PO PRN (23:26)
[2020-11-25] MEDS ORDERED: NICOTINE POLACRILEX 2 MG GUM BUC PRN (23:26)
[2020-11-25] MEDS ORDERED: methaDONE HCL 10 MG TABLET (FOR DETOX USE ONLY) PO ONE (23:50)
[2020-11-26] MEDS ORDERED: methaDONE HCL 10 MG TABLET (FOR DETOX USE ONLY) ONE (01:47)
[2020-11-26] MEDS ORDERED: METHOCARBAMOL 500 MG TABLET ONE (01:52)
[2020-11-26] MEDS: METHOCARBAMOL 500 MG TABLET PO PRN ×3 (01:58→18:05)
[2020-11-26 08:29] LABS: HEMATOCRIT 41.8 % (35.4-49); HEMOGLOBIN 14.6 GM/dL (11.7-16.9); MCH 31.2 pg (25.7-33.7); MEAN CELL VOLUME 89.2 fl (80-96); MEAN PLT VOLUME 9.3 fl (7.5-11.1); PLATELET COUNT 172 10^3/uL (134-434); RBC 4.69 M/mm3 (4.00-5.60); RDW 14.4 % (11.9-15.9); WHITE BLOOD COUNT 8.7 K/mm3 (4.0-10.0)
[2020-11-26 08:47] LABS: ALBUMIN 3.2 g/dl (3.4-5.0); BILIRUBIN,TOTAL 0.9 mg/dL (0.2-1); BLOOD UREA NITROGEN 12.1 mg/dL (7-18); CALCIUM 8.3 mg/dL (8.5-10.1); CREATININE 0.7 mg/dL (0.55-1.3)
[2020-11-26] MEDS ORDERED: methaDONE HCL 10 MG TABLET (FOR DETOX USE ONLY) PO ONE (10:00)
[2020-11-26] MEDS: PRENATAL VITAMINS W/ FOLIC ACID TABLET (FP) PO SCH (12:33)
[2020-11-26] MEDS: cloNIDine HCL 0.1 MG TABLET PO PRN ×2 (12:33→18:05)
[2020-11-26] MEDS: THIAMINE HCL 100 MG TABLET (FP) PO SCH (23:34)
[2020-11-26] MEDS: GABAPENTIN 100 MG CAPSULE PO SCH (23:34)
[2020-11-26] MEDS: MELATONIN 5 MG TABLETS PO SCH (23:34)
[2020-11-26] MEDS: risperiDONE 1 MG TABLET PO SCH (23:34)
[2020-11-27] MEDS: GABAPENTIN 100 MG CAPSULE PO SCH ×3 (06:13→22:23)
[2020-11-27] MEDS ORDERED: methaDONE HCL 10 MG TABLET (FOR DETOX USE ONLY) PO ONE (10:00)
[2020-11-27] MEDS: risperiDONE 1 MG TABLET PO SCH ×2 (10:07→22:23)
[2020-11-27] MEDS: PRENATAL VITAMINS W/ FOLIC ACID TABLET (FP) PO SCH (10:07)
[2020-11-27] MEDS: cloNIDine HCL 0.1 MG TABLET PO PRN (17:35)
[2020-11-27] MEDS: METHOCARBAMOL 500 MG TABLET PO PRN (17:36)
[2020-11-27] MEDS: THIAMINE HCL 100 MG TABLET (FP) PO SCH (22:23)
[2020-11-27] MEDS: MELATONIN 5 MG TABLETS PO SCH (22:24)
[2020-11-28] MEDS: GABAPENTIN 100 MG CAPSULE PO SCH (06:24)
[2020-11-28 06:47] VITALS: BP 133/67; PULSE 53; TEMP 998
[2020-11-29] MEDS ORDERED: methaDONE HCL 10 MG TABLET (FOR DETOX USE ONLY) PO ONE (10:00)
== END 2020-11-28 09:52 | disposition left against medical advice (07) | DRG 770 ==
LOC: YASAS 16:38 → Y3N 11-26 11:17 → Y6N 11-27 18:41
PROVIDERS: ADMIT Allergy & Immunology; ATTEND Allergy & Immunology
PROC: HZ2ZZZZ Detoxification Services for Substance Abuse Treatment (ICD-10-PCS; principal; 2020-11-26)
DX: F11.23 Opioid dependence with withdrawal (principal); F10.230 Alcohol dependence with withdrawal, uncomplicated; F14.20 Cocaine dependence, uncomplicated; F12.20 Cannabis dependence, uncomplicated; F17.210 Nicotine dependence, cigarettes, uncomplicated; Z86.59 Personal history of other mental and behavioral disorders; Z91.14 Patient's other noncompliance with medication regimen; Z56.0 Unemployment, unspecified; Z59.0 Homelessness
CPT/HCPCS: 36415; 71046-TC-FY; 71101-TC-RT-FY; 80053; 85027; 86780; 93005; 93010; 99284-25; C9803; J0735; J2794; U0003; U0005

== ENCOUNTER 2022-05-22 20:22 | Emergency (ER) | payer OTHER ==
[2022-05-22 20:35] VITALS: BP 155/95; PULSE 69; RESP 18; TEMP 97.9; BMI 20.3
== END 2022-05-22 21:36 | disposition left against medical advice (07) ==
LOC: JER 20:22
DX: R42 Dizziness and giddiness (principal)
CPT/HCPCS: 99281-25

== ENCOUNTER 2022-05-23 13:37 | Inpatient (IN) | payer OTHER ==
[2022-05-23 16:43] VITALS: BMI 15.6
[2022-05-23] MEDS ORDERED: MAG HYDROX/AL HYDROX/SIMETH 30 ML UNIT-DOSE CUP PO PRN (19:40)
[2022-05-23] MEDS ORDERED: BISMUTH SUBSALICYLATE 524 MG/30 ML PO PRN (19:40)
[2022-05-23] MEDS ORDERED: BENZONATATE 200 MG CAPSULE PO PRN (19:40)
[2022-05-23] MEDS ORDERED: guaiFENesin 600 MG TABLET.ER (FP) PO PRN (19:40)
[2022-05-23] MEDS ORDERED: MAGNESIUM HYDROX 2400MG/30ML ORAL SUSPENSION 30 ML CUP PO PRN (19:40)
[2022-05-23] MEDS ORDERED: LOPERAMIDE HCL 2 MG CAPSULE PO PRN (19:40)
[2022-05-23] MEDS ORDERED: POLYETHYLENE GLYCOL (HEALTHYLAX) 3350 17 GM PACKET PO PRN (19:40)
[2022-05-23] MEDS ORDERED: ONDANSETRON *ODT* 4 MG TABLET SL PRN (19:40)
[2022-05-23] MEDS ORDERED: NALOXONE HCL 0.4 MG/ML VIAL IM PRN (19:40)
[2022-05-23] MEDS ORDERED: NICOTINE POLACRILEX 2 MG GUM BUC PRN (19:40)
[2022-05-23] MEDS ORDERED: P-EPHED 60MG/TRIPROLIDI 2.5MG TABLET PO PRN (19:40)
[2022-05-23] MEDS ORDERED: NALOXONE HCL (KLOXXADO) 8 MG SPRAY NS PRN (19:40)
[2022-05-23] MEDS ORDERED: IBUPROFEN 400 MG TABLET (FP) PO PRN (19:40)
[2022-05-23] MEDS ORDERED: DICYCLOMINE HCL 10 MG CAPSULE PO PRN (19:40)
[2022-05-23] MEDS ORDERED: BENZOCAINE/MENTHOL (CHLORASEPTIC ) LOZENGE MM PRN (19:40)
[2022-05-23] MEDS ORDERED: ACETAMINOPHEN 325 MG TABLET (FP) PO PRN (19:40)
[2022-05-23] MEDS ORDERED: methaDONE HCL 10 MG TABLET (FOR DETOX USE ONLY) PO ONE (20:05)
[2022-05-23] MEDS ORDERED: cloNIDine HCL 0.1 MG TABLET PO PRN (20:05)
[2022-05-23] MEDS: THIAMINE HCL 100 MG TABLET (FP) PO SCH (22:03)
[2022-05-24] MEDS: hydrOXYzine PAMOATE 25 MG CAPSULE (FP) PO PRN (00:48)
[2022-05-24] MEDS: IBUPROFEN 600 MG TABLET (FP) PO PRN (00:48)
[2022-05-24] MEDS: PRENATAL VITAMINS W/ FOLIC ACID TABLET (FP) PO SCH (10:45)
[2022-05-24] MEDS: METHOCARBAMOL 500 MG TABLET PO PRN ×2 (10:46→22:07)
[2022-05-24 13:13] LABS: HEMATOCRIT 38.4 % (35.4-49); HEMOGLOBIN 12.6 GM/dL (11.7-16.9); MCH 27.2 pg (25.7-33.7); MCHC 32.8 g/dl (32.0-35.9); MEAN CELL VOLUME 83.1 fl (80-96); MEAN PLT VOLUME 7.9 fl (7.5-11.1); PLATELET COUNT 333 10^3/uL (134-434); RBC 4.62 M/mm3 (4.00-5.60); WHITE BLOOD COUNT 6.7 K/mm3 (4.0-10.0)
[2022-05-24 13:35] LABS: CALCIUM 8.1 mg/dL (8.5-10.1)
[2022-05-24 13:36] LABS: ALBUMIN 2.9 g/dl (3.4-5.0); BLOOD UREA NITROGEN 18.8 mg/dL (7-18)
[2022-05-24 13:39] LABS: CREATININE 0.7 mg/dL (0.55-1.3)
[2022-05-24 13:40] LABS: BILIRUBIN,TOTAL 0.7 mg/dL (0.2-1)
[2022-05-24 13:41] LABS: TOT PROT 7.3 g/dl (6.4-8.2)
[2022-05-24] MEDS: MELATONIN 5 MG TABLETS PO PRN (22:07)
[2022-05-24] MEDS: THIAMINE HCL 100 MG TABLET (FP) PO SCH (22:07)
[2022-05-25] MEDS: hydrOXYzine PAMOATE 25 MG CAPSULE (FP) PO PRN (06:51)
[2022-05-25] MEDS: IBUPROFEN 600 MG TABLET (FP) PO PRN (06:51)
[2022-05-25] MEDS: PRENATAL VITAMINS W/ FOLIC ACID TABLET (FP) PO SCH (09:36)
[2022-05-25] MEDS: METHOCARBAMOL 500 MG TABLET PO PRN ×2 (09:37→22:24)
[2022-05-25] MEDS ORDERED: methaDONE HCL 10 MG TABLET (FOR DETOX USE ONLY) PO ONE (10:00)
[2022-05-25] MEDS: THIAMINE HCL 100 MG TABLET (FP) PO SCH (22:24)
[2022-05-25] MEDS: MELATONIN 5 MG TABLETS PO PRN (22:24)
[2022-05-26] MEDS: hydrOXYzine PAMOATE 25 MG CAPSULE (FP) PO PRN (03:18)
[2022-05-26 10:25] VITALS: BP 134/64; PULSE 77; RESP 16; TEMP 97.5
[2022-05-27] MEDS ORDERED: methaDONE HCL 10 MG TABLET (FOR DETOX USE ONLY) PO ONE (10:00)
== END 2022-05-26 10:08 | disposition left against medical advice (07) | DRG 770 ==
LOC: YASAS 13:37 → Y3N 20:20
PROVIDERS: ADMIT Allergy & Immunology; ATTEND Surgery
PROC: HZ2ZZZZ Detoxification Services for Substance Abuse Treatment (ICD-10-PCS; principal; 2022-05-23)
DX: F11.23 Opioid dependence with withdrawal (principal); F14.20 Cocaine dependence, uncomplicated; F12.20 Cannabis dependence, uncomplicated; F17.210 Nicotine dependence, cigarettes, uncomplicated; F31.9 Bipolar disorder, unspecified; F41.9 Anxiety disorder, unspecified; F43.10 Post-traumatic stress disorder, unspecified; R63.4 Abnormal weight loss; Z68.1 Body mass index [BMI] 19.9 or less, adult; S43.101A Unspecified dislocation of right acromioclavicular joint, initial encounter; W19.XXXA Unspecified fall, initial encounter; Y92.9 Unspecified place or not applicable; Y99.9 Unspecified external cause status
CPT/HCPCS: 36415; 70450-TC; 73030-TC-RT-FY; 80053; 80307; 83036; 85025; 85027; 86780; 87811; 93005; 93010; 99283-25; 99285-25; C9803-CS; U0003; U0005

== ENCOUNTER 2022-05-25 11:27 | Emergency (ER) | payer OTHER ==
[2022-05-25 11:56] VITALS: PULSE 68; RESP 16; BMI 16.0
[2022-05-25] MEDS ORDERED: ACETAMINOPHEN 325 MG TABLET (FP) PO PRN (12:30)
[2022-05-25] MEDS ORDERED: ACETAMINOPHEN 325 MG TABLET (FP) ONE (12:45)
[2022-05-25 14:40] VITALS: BP 110/60; TEMP 97.8
== END 2022-05-25 14:40 | disposition short-term general hospital (02) ==
LOC: JER 11:27
DX: M25.511 Pain in right shoulder (principal)
CPT/HCPCS: 73030-TC-RT-FY; 99285-25

== ENCOUNTER 2022-06-13 16:48 | Inpatient (IN) | payer OTHER ==
[2022-06-13 17:21] VITALS: BMI 16.5
[2022-06-13] MEDS ORDERED: BENZONATATE 200 MG CAPSULE PO PRN (17:51)
[2022-06-13] MEDS ORDERED: MAG HYDROX/AL HYDROX/SIMETH 30 ML UNIT-DOSE CUP PO PRN (17:51)
[2022-06-13] MEDS ORDERED: MAGNESIUM HYDROX 2400MG/30ML ORAL SUSPENSION 30 ML CUP PO PRN (17:51)
[2022-06-13] MEDS ORDERED: P-EPHED 60MG/TRIPROLIDI 2.5MG TABLET PO PRN (17:51)
[2022-06-13] MEDS ORDERED: ONDANSETRON *ODT* 4 MG TABLET SL PRN (17:51)
[2022-06-13] MEDS ORDERED: NALOXONE HCL 0.4 MG/ML VIAL IM PRN (17:51)
[2022-06-13] MEDS ORDERED: DICYCLOMINE HCL 10 MG CAPSULE PO PRN (17:51)
[2022-06-13] MEDS ORDERED: BENZOCAINE/MENTHOL (CHLORASEPTIC ) LOZENGE MM PRN (17:51)
[2022-06-13] MEDS ORDERED: NICOTINE 10 MG CARTRIDGE (INHALER) IH PRN (17:51)
[2022-06-13] MEDS ORDERED: guaiFENesin 600 MG TABLET.ER (FP) PO PRN (17:51)
[2022-06-13] MEDS ORDERED: POLYETHYLENE GLYCOL (HEALTHYLAX) 3350 17 GM PACKET PO PRN (17:51)
[2022-06-13] MEDS ORDERED: IBUPROFEN 400 MG TABLET (FP) PO PRN (17:51)
[2022-06-13] MEDS ORDERED: LOPERAMIDE HCL 2 MG CAPSULE PO PRN (17:51)
[2022-06-13] MEDS ORDERED: NALOXONE HCL (KLOXXADO) 8 MG SPRAY NS PRN (17:51)
[2022-06-13] MEDS ORDERED: BISMUTH SUBSALICYLATE 524 MG/30 ML PO PRN (17:51)
[2022-06-13] MEDS ORDERED: ACETAMINOPHEN 325 MG TABLET (FP) PO PRN (17:51)
[2022-06-13] MEDS ORDERED: NICOTINE POLACRILEX 2 MG GUM BUC PRN (17:51)
[2022-06-13] MEDS: hydrOXYzine PAMOATE 25 MG CAPSULE (FP) PO PRN (19:41)
[2022-06-13] MEDS: METHOCARBAMOL 500 MG TABLET PO PRN (19:41)
[2022-06-13] MEDS ORDERED: cloNIDine HCL 0.1 MG TABLET PO PRN (19:43)
[2022-06-13] MEDS ORDERED: methaDONE HCL 10 MG TABLET (FOR DETOX USE ONLY) PO ONE (22:46)
[2022-06-13] MEDS: MELATONIN 5 MG TABLETS PO PRN (23:01)
[2022-06-13] MEDS: THIAMINE HCL 100 MG TABLET (FP) PO SCH (23:01)
[2022-06-14] MEDS: PRENATAL VITAMINS W/ FOLIC ACID TABLET (FP) PO SCH (09:41)
[2022-06-14] MEDS: hydrOXYzine PAMOATE 25 MG CAPSULE (FP) PO PRN ×2 (09:43→22:54)
[2022-06-14] MEDS: METHOCARBAMOL 500 MG TABLET PO PRN (09:43)
[2022-06-14 11:14] LABS: HEMATOCRIT 38.6 % (35.4-49); HEMOGLOBIN 12.8 GM/dL (11.7-16.9); MCH 27.2 pg (25.7-33.7); MCHC 33.1 g/dl (32.0-35.9); MEAN CELL VOLUME 82.3 fl (80-96); MEAN PLT VOLUME 7.7 fl (7.5-11.1); PLATELET COUNT 372 10^3/uL (134-434); RBC 4.69 M/mm3 (4.00-5.60); WHITE BLOOD COUNT 7.4 K/mm3 (4.0-10.0)
[2022-06-14 11:21] LABS: CALCIUM 8.3 mg/dL (8.5-10.1)
[2022-06-14 11:22] LABS: ALBUMIN 2.7 g/dl (3.4-5.0); BLOOD UREA NITROGEN 16.2 mg/dL (7-18)
[2022-06-14 11:25] LABS: CREATININE 0.9 mg/dL (0.55-1.3)
[2022-06-14 11:26] LABS: BILIRUBIN,TOTAL 0.5 mg/dL (0.2-1); TOT PROT 7.2 g/dl (6.4-8.2)
[2022-06-14] MEDS: THIAMINE HCL 100 MG TABLET (FP) PO SCH (22:52)
[2022-06-14] MEDS: GABAPENTIN 100 MG CAPSULE PO SCH (22:52)
[2022-06-14] MEDS: risperiDONE 1 MG TABLET PO SCH (22:52)
[2022-06-14] MEDS: MELATONIN 5 MG TABLETS PO PRN (22:53)
[2022-06-15] MEDS: GABAPENTIN 100 MG CAPSULE PO SCH ×3 (06:07→22:31)
[2022-06-15] MEDS: diazePAM 5 MG TABLET PO PRN ×3 (06:08→22:31)
[2022-06-15] MEDS ORDERED: methaDONE HCL 10 MG TABLET (FOR DETOX USE ONLY) PO ONE (10:00)
[2022-06-15] MEDS: PRENATAL VITAMINS W/ FOLIC ACID TABLET (FP) PO SCH (10:30)
[2022-06-15] MEDS: METHOCARBAMOL 500 MG TABLET PO PRN (10:31)
[2022-06-15] MEDS: risperiDONE 1 MG TABLET PO SCH ×2 (10:31→22:31)
[2022-06-15] MEDS: IBUPROFEN 600 MG TABLET (FP) PO PRN (17:56)
[2022-06-15] MEDS: hydrOXYzine PAMOATE 25 MG CAPSULE (FP) PO PRN (17:56)
[2022-06-15] MEDS: THIAMINE HCL 100 MG TABLET (FP) PO SCH (22:31)
[2022-06-15] MEDS: MELATONIN 5 MG TABLETS PO PRN (22:32)
[2022-06-16] MEDS: GABAPENTIN 100 MG CAPSULE PO SCH ×3 (05:21→22:29)
[2022-06-16] MEDS: PRENATAL VITAMINS W/ FOLIC ACID TABLET (FP) PO SCH (10:44)
[2022-06-16] MEDS: risperiDONE 1 MG TABLET PO SCH ×2 (10:45→22:29)
[2022-06-16] MEDS: IBUPROFEN 600 MG TABLET (FP) PO PRN (14:53)
[2022-06-16] MEDS: MELATONIN 5 MG TABLETS PO PRN (22:29)
[2022-06-16] MEDS: THIAMINE HCL 100 MG TABLET (FP) PO SCH (22:29)
[2022-06-16] MEDS: diazePAM 5 MG TABLET PO PRN (22:30)
[2022-06-16] MEDS: hydrOXYzine PAMOATE 25 MG CAPSULE (FP) PO PRN (22:31)
[2022-06-17] MEDS: GABAPENTIN 100 MG CAPSULE PO SCH ×3 (05:21→22:19)
[2022-06-17] MEDS: diazePAM 5 MG TABLET PO PRN (05:21)
[2022-06-17] MEDS ORDERED: methaDONE HCL 10 MG TABLET (FOR DETOX USE ONLY) PO ONE (10:00)
[2022-06-17] MEDS: risperiDONE 1 MG TABLET PO SCH ×2 (10:18→22:19)
[2022-06-17] MEDS: PRENATAL VITAMINS W/ FOLIC ACID TABLET (FP) PO SCH (10:18)
[2022-06-17] MEDS: IBUPROFEN 600 MG TABLET (FP) PO PRN (15:11)
[2022-06-17] MEDS: THIAMINE HCL 100 MG TABLET (FP) PO SCH (22:19)
[2022-06-17] MEDS: hydrOXYzine PAMOATE 25 MG CAPSULE (FP) PO PRN (22:22)
[2022-06-17] MEDS: MELATONIN 5 MG TABLETS PO PRN (23:16)
[2022-06-17] MEDS: METHOCARBAMOL 500 MG TABLET PO PRN (23:17)
[2022-06-18] MEDS: GABAPENTIN 100 MG CAPSULE PO SCH ×2 (05:25→13:36)
[2022-06-18] MEDS: METHOCARBAMOL 500 MG TABLET PO PRN (05:27)
[2022-06-18 06:26] VITALS: RESP 16
[2022-06-18] MEDS: PRENATAL VITAMINS W/ FOLIC ACID TABLET (FP) PO SCH (10:29)
[2022-06-18] MEDS: risperiDONE 1 MG TABLET PO SCH (10:29)
[2022-06-18] MEDS ORDERED: LIDOCAINE 5% TOPICAL PATCH TP SCH (11:15)
[2022-06-18 13:04] VITALS: BP 114/63; PULSE 102; TEMP 98.9
[2022-06-18] MEDS ORDERED: LIDOCAINE PATCH REMOVAL MC SCH (22:00)
== END 2022-06-18 13:38 | disposition other institution (70) | DRG 773 ==
LOC: YASAS 16:48 → Y3N 18:10
PROVIDERS: ADMIT Allergy & Immunology; ATTEND Surgery
PROC: HZ2ZZZZ Detoxification Services for Substance Abuse Treatment (ICD-10-PCS; principal; 2022-06-13)
DX: F11.23 Opioid dependence with withdrawal (principal); F14.20 Cocaine dependence, uncomplicated; F17.210 Nicotine dependence, cigarettes, uncomplicated; G47.00 Insomnia, unspecified; Z86.59 Personal history of other mental and behavioral disorders; Z56.0 Unemployment, unspecified; Z59.00 Homelessness unspecified; Z91.148 Patient's other noncompliance with medication regimen for other reason
CPT/HCPCS: 0241U-QW; 36415; 71045-TC-FY; 80053; 80307; 81003; 82962; 83036; 84484; 85025; 85027; 85610; 85730; 86780; 87086; 93005; 93010; 99282-25; C9803-CS; U0003; U0005

== ENCOUNTER 2022-06-18 13:50 | Inpatient (IN) | payer OTHER ==
[2022-06-18] MEDS ORDERED: ACETAMINOPHEN 325 MG TABLET (FP) PO PRN (14:38)
[2022-06-18] MEDS ORDERED: guaiFENesin 600 MG TABLET.ER (FP) PO PRN (14:38)
[2022-06-18] MEDS ORDERED: NICOTINE POLACRILEX 2 MG GUM BUC PRN (14:38)
[2022-06-18] MEDS ORDERED: hydrOXYzine PAMOATE 25 MG CAPSULE (FP) PO PRN (14:38)
[2022-06-18] MEDS ORDERED: NALOXONE HCL 0.4 MG/ML VIAL IVPUSH PRN (14:38)
[2022-06-18] MEDS ORDERED: LOPERAMIDE HCL 2 MG CAPSULE PO PRN (14:38)
[2022-06-18] MEDS ORDERED: IBUPROFEN 400 MG TABLET (FP) PO PRN (14:38)
[2022-06-18] MEDS ORDERED: BENZOCAINE/MENTHOL (CHLORASEPTIC ) LOZENGE MM PRN (14:38)
[2022-06-18] MEDS ORDERED: MAG HYDROX/AL HYDROX/SIMETH 30 ML UNIT-DOSE CUP PO PRN (14:38)
[2022-06-18] MEDS ORDERED: BENZONATATE 200 MG CAPSULE PO PRN (14:38)
[2022-06-18] MEDS ORDERED: NALOXONE HCL (KLOXXADO) 8 MG SPRAY NS PRN (14:38)
[2022-06-18] MEDS ORDERED: MAGNESIUM HYDROX 2400MG/30ML ORAL SUSPENSION 30 ML CUP PO PRN (14:38)
[2022-06-18] MEDS ORDERED: POLYETHYLENE GLYCOL (HEALTHYLAX) 3350 17 GM PACKET PO PRN (14:38)
[2022-06-18] MEDS ORDERED: BACLOFEN 10 MG TABLET (FP) PO PRN (14:38)
[2022-06-18] MEDS ORDERED: NICOTINE 10 MG CARTRIDGE (INHALER) IH PRN (14:38)
[2022-06-18] MEDS ORDERED: IBUPROFEN 600 MG TABLET (FP) PO PRN (14:38)
[2022-06-18] MEDS ORDERED: TUBERCULIN PPD 5 TU/0.1ML VIAL ID ONE (18:18)
[2022-06-18] MEDS: GABAPENTIN 100 MG CAPSULE PO SCH (21:24)
[2022-06-18] MEDS: THIAMINE HCL 100 MG TABLET (FP) PO SCH (21:25)
[2022-06-18] MEDS: risperiDONE 1 MG TABLET PO SCH (21:25)
[2022-06-18] MEDS: MELATONIN 5 MG TABLETS PO SCH (21:25)
[2022-06-19] MEDS: GABAPENTIN 100 MG CAPSULE PO SCH ×3 (06:17→21:30)
[2022-06-19] MEDS: risperiDONE 1 MG TABLET PO SCH ×2 (09:44→21:30)
[2022-06-19] MEDS: PRENATAL VITAMINS W/ FOLIC ACID TABLET (FP) PO SCH (09:44)
[2022-06-19] MEDS ORDERED: DICYCLOMINE HCL 10 MG CAPSULE PO PRN (09:46)
[2022-06-19] MEDS ORDERED: ARTIFICIAL TEARS (POLYVINYL ALCOHOL) OPTH DROPS OU PRN (09:53)
[2022-06-19] MEDS ORDERED: BUPRENORPHINE HCL 75 MCG FILM BC ONE (10:00)
[2022-06-19] MEDS: PANTOPRAZOLE 20 MG TABLET PO SCH (10:19)
[2022-06-19 19:39] LABS: HIV INTERPRETATION NEGATIVE (NEGATIVE)
[2022-06-19] MEDS: MELATONIN 5 MG TABLETS PO SCH (21:29)
[2022-06-19] MEDS: THIAMINE HCL 100 MG TABLET (FP) PO SCH (21:29)
[2022-06-20] MEDS: GABAPENTIN 100 MG CAPSULE PO SCH ×3 (06:33→21:15)
[2022-06-20] MEDS: PANTOPRAZOLE 20 MG TABLET PO SCH (09:41)
[2022-06-20] MEDS: PRENATAL VITAMINS W/ FOLIC ACID TABLET (FP) PO SCH (09:41)
[2022-06-20] MEDS: BUPRENORPHINE HCL 75 MCG FILM BC SCH ×2 (09:42→21:16)
[2022-06-20] MEDS: risperiDONE 1 MG TABLET PO SCH (09:43)
[2022-06-20] MEDS: hydrOXYzine PAMOATE 50 MG CAPSULE (FP) PO PRN ×2 (11:40→19:00)
[2022-06-20] MEDS: AMOX TR/POT CLAV 500MG/125MG TABLETS (FP) PO SCH (16:49)
[2022-06-20] MEDS: THIAMINE HCL 100 MG TABLET (FP) PO SCH (21:15)
[2022-06-20] MEDS: MELATONIN 5 MG TABLETS PO SCH (21:15)
[2022-06-20] MEDS ORDERED: risperiDONE 2 MG TABLET PO SCH (22:00)
[2022-06-20] MEDS ORDERED: BENZTROPINE MESYLATE 1 MG TABLET PO PRN (22:00)
[2022-06-21] MEDS: GABAPENTIN 100 MG CAPSULE PO SCH ×2 (06:29→13:14)
[2022-06-21] MEDS: hydrOXYzine PAMOATE 50 MG CAPSULE (FP) PO PRN (06:31)
[2022-06-21 06:54] VITALS: BP 125/81; PULSE 104; RESP 20; TEMP 97.5
[2022-06-21] MEDS: AMOX TR/POT CLAV 500MG/125MG TABLETS (FP) PO SCH (07:01)
[2022-06-21] MEDS: BUPRENORPHINE HCL 150 MCG FILM BC SCH ×2 (07:04→09:39)
[2022-06-21] MEDS: PRENATAL VITAMINS W/ FOLIC ACID TABLET (FP) PO SCH (09:40)
[2022-06-21] MEDS: PANTOPRAZOLE 20 MG TABLET PO SCH (09:40)
[2022-06-21] MEDS ORDERED: risperiDONE 1 MG TABLET PO SCH (10:00)
[2022-06-21] MEDS ORDERED: LACTULOSE 20 GM/30 ML UDC (FOR ORAL USE ONLY) PO SCH (14:00)
[2022-06-22] MEDS ORDERED: BUPRENORPHINE HCL 150 MCG FILM BC SCH (10:00)
== END 2022-06-21 16:03 | disposition left against medical advice (07) | DRG 770 ==
LOC: YASAS 13:50 → Y3W 13:51
PROVIDERS: ADMIT Allergy & Immunology; ATTEND Psychiatry & Neurology Pain Medicine
PROC: HZ42ZZZ Group Counseling for Substance Abuse Treatment, Cognitive-Behavioral (ICD-10-PCS; principal; 2022-06-18)
DX: F11.20 Opioid dependence, uncomplicated (principal); F14.20 Cocaine dependence, uncomplicated; F10.20 Alcohol dependence, uncomplicated; F17.210 Nicotine dependence, cigarettes, uncomplicated; F31.9 Bipolar disorder, unspecified; F41.9 Anxiety disorder, unspecified; F32.A Depression, unspecified; E72.20 Disorder of urea cycle metabolism, unspecified; J18.9 Pneumonia, unspecified organism; K21.9 Gastro-esophageal reflux disease without esophagitis; L03.90 Cellulitis, unspecified; H04.123 Dry eye syndrome of bilateral lacrimal glands; B18.2 Chronic viral hepatitis C; R63.4 Abnormal weight loss; Z68.1 Body mass index [BMI] 19.9 or less, adult
CPT/HCPCS: 36415; 82140; 86803; 87389; 87522; J0475